=== PATIENT | male | born 1990 | race African-American/Black ===

== ENCOUNTER 2016-10-30 09:11 | Emergency (ER) | payer SELFPAY ==
[2016-10-30 09:58] VITALS: BP 132/78
--- NOTE | 2016-10-30 10:13 | UC ---
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 lifting more weights training schedule is 4-5 per week both hands knuckles are painful at times denies other trauma except for training - History of Current Complaint Chief Complaint: UCUpperExtremity Stated Complaint: RIGHT SHOULDER PAIN Time Seen by Provider: 10/30/16 10:06 Hx Obtained From: Patient - Allergies/Home Medications Allergies/Adverse Reactions: Allergies Allergy/AdvReac Type Severity Reaction Status Date / Time seasonal Allergy Sneezing Uncoded 10/30/16 09:40 Home Medications: Home Medications LoraTADine TAB(NF) [Claritin 10 MG TAB(NF)] 10 mg PO DAILY PRN 10/30/16 [ History Confirmed 10/30/16] Visine Allergy Eye 1 dose BOTH EYES BID PRN 10/30/16 [History] PMH/Surg Hx/FS Hx/Imm Hx Previously Healthy: Yes - Surgical History Surgical History: None - Family History Known Family History: Negative: Cardiac Disease, Hypertension, Diabetes - Social History Occupation: Student Lives: With Family Alcohol Use: Occasionally Substance Use Type: None Smoking Status (MU): Never Smoked Tobacco Review of Systems Constitutional: Negative Skin: Negative Eyes: Negative ENT: Negative Respiratory: Negative Cardiovascular: Negative Gastrointestinal: Negative Genitourinary: Negative Motor: Negative Neurovascular: Negative Musculoskeletal: Other: - right shoulder pain Neurological: Negative Psychological: Negative All Other Systems Reviewed And Are Negative: Yes Physical Exam Triage Information Reviewed: Yes Appearance: No Pain Distress, Well-Nourished Vital Signs: Initial Vital Signs Temp 99 F 10/30/16 09:31 Pulse 85 10/30/16 09:31 Resp 24 10/30/16 09:31 BP 132/78 10/30/16 09:31 Vital Signs Reviewed: Yes Eyes: Positive: Conjunctiva Clear Neck: Positive: No Lymphadenopathy Respiratory: Positive: Lungs clear, Normal breath sounds, No respiratory distress Cardiovascular: Positive: RRR, No Murmur, Pulses Normal, Brisk Capillary Refill Abdomen Description: Positive: Nontender, Soft Bowel Sounds: Positive: Present Musculoskeletal: Positive: Other: - RUE -No bony deformities, slight tenderness in rotator cuff, biceps tendon, non tendern in acromioclavicular joint. Full ROM and strength in shoulder upon adduction, abduction, internal and external rotation. Scapular winging, impingement sign, scratch test ( internal rotation), joint laxity, drop arm test were negative. both hands- non tendern metacarpals and joints- slight soft tissues tenderness beteen 4th and 5th knuckles Neurological: Positive: Alert Psychological Exam: Normal Skin Exam: Normal Shoulder Course/Dx - Course Course Of Treatment: exam completed. shoulder pain and knuckle pain from trauma training in [employer]- shoulder pain from overuse appaears to be shoulder tendinitis, will treat with NSAIDS and refer to PT for further evaluation and treatment. both hands with soft tissue contusions, will treat with NSAIDS, rest - Differential Dx/Diagnosis Differential Diagnosis/HQI/PQRI: Contusion, Rotator Cuff Injury, Sprain, Strain , Tendonitis Provider Diagnoses: contusion of both hands. right shoulder tendonitis Discharge - Discharge Plan Condition: Stable Disposition: HOME Patient Education Materials: Shoulder Sprain (ED), Rotator Cuff Tendinitis (ED) Referrals: No Primary Care Phys,NOPCP [Primary Care Provider] - [facility] [place] [facility] [Outside] Additional Instructions: Please call physical therapy for further evaluation and treatment. Take ibuprofen for fever or pain. Increase fluids and rest. Please review your discharge instructions. If your symptoms do not improve please call your primary care provider or return to urgent care. Your blood pressure is pre-hypertensive reading. Please contact your primary care provider within 1 day -4 weeks for further evaluation
== END 2016-10-30 10:34 | disposition home or self-care (01) ==
LOC: UCCORT 09:11
DX: S60.222A Contusion of left hand, initial encounter (principal); S60.221A Contusion of right hand, initial encounter; X58.XXXA Exposure to other specified factors, initial encounter; Y93.89 Activity, other specified; Y92.9 Unspecified place or not applicable; M75.91 Shoulder lesion, unspecified, right shoulder
CPT/HCPCS: 99201; G0463